=== PATIENT | female | born 1955 | race Caucasian/White ===

== ENCOUNTER 2022-06-07 09:48 | Day surgery (SDC) | payer MEDICARE, SELFPAY ==
[2022-06-06 15:17] VITALS: BMI 29.4
[2022-06-07] VITALS (13 sets, daily range): BP systolic 111–132; BP diastolic 56–79; PULSE 63–86; RESP 10–16; TEMP 36.3–36.7; O2SAT 93–98; BMI 29.4
--- NOTE | 2022-06-07 10:10 | SUR.OPER ---
Supine on padded OR bed, head on pillow, arms secured on padded arm boards at <90 degrees abduction, legs uncrossed, safety belt at thigh, tape over blanket over lower legs.
[2022-06-07] MEDS: LACTATED RINGERS 1,000 ML 42 ML IV (10:48)
--- NOTE | 2022-06-07 11:08 | PM.HP.1 ---
History of Present Illness History of Present Illness Date Patient Seen: 06/07/22 Time Patient Seen: 11:08 Chief complaint: OPEN INCISIONAL HERNIA REPAIR Narrative: 67-year-old woman here for elective repair of a incisional ventral hernia. Please refer to the H& P from April 2022 for further detail. No interval changes in health. Patient History Medical History Diverticulitis Diverticulosis Hearing loss Hernia Hyperlipemia Surgical History H/O umbilical hernia repair History of Family & Social History Family History Mother Hypertension Stroke Breast cancer Skin cancer Grandfather Heart disease Sister Breast cancer Family/Other Breast cancer Social History: household members spouse,children lives independently Yes Tobacco & Substance use: Smoking Status Never smoker alcohol intake current Substance Use Type does not use Meds Home Medications and Allergies Home Medications Medication Instructions Recorded Confirmed Type acetylcysteine (bulk) PO 05/05/22 05/05/22 History [X-[id number]-Cysteine] acetylcysteine 500 mg capsule 500 mg PO DAILY 05/05/22 06/06/22 History cholecalciferol (vitamin D3) PO 05/05/22 05/05/22 History coenzyme Q10 300 mg capsule (Co 300 mg PO DAILY 05/05/22 06/06/22 History Q-10) ezetimibe 10 mg tablet 10 mg PO DAILY 05/05/22 06/06/22 History magnesium oxide 500 mg capsule 500 mg PO DAILY 05/05/22 06/06/22 History simvastatin 20 mg tablet 20 mg PO DAILY 05/05/22 06/06/22 History zinc citrate PO 05/05/22 05/05/22 History Allergies Allergy/AdvReac Type Severity Reaction Status Date / Time bee venom protein (honey bee) Allergy Verified 06/07/22 10:28 Iodinated Contrast Media Allergy Verified 06/07/22 10:28 Exam Vital Signs (past 8 hours): - 06/07/22 10:16 Temperature 98.1 F Pulse Rate 63 Respiratory Rate 16 Blood Pressure 122/68 Pulse Oximetry 98 Oxygen Delivery Method Room Air Oxygen Delivery Method Room Air Narrative Exam Narrative: General adult woman alert oriented no acute distress Abdomen soft reducible supra umbilical ventral hernia right of midline Assessment & Plan Assessment and plan (1) Incisional hernia: Status: Acute Assessment & Plan narrative: 67-year-old woman with a incisional hernia following a prior umbilical hernia repair with mesh. She is here today for elective open repair of the incisional hernia. An overview of the operation was discussed with the patient. Operative risks including bleeding, infection, recurrence, damage to surrounding structures were discussed. Questions have been answered. She gives her verbal and written consent to proceed. Time Spent With Patient Critical Care time: I spent a total of [] minutes of critical care time on this patient's care today; this time is exclusive of procedural time.
[2022-06-07] MEDS: CEFAZOLIN 2 GM/100 ML PREMIX 100 ML IV (11:35)
[2022-06-07] MEDS: ACETAMINOPHEN IV 1,000 MG/100 ML VIAL 400 MG IV (11:40)
[2022-06-07] MEDS: BUPIVACAINE 0.25% (PF) VIAL 30 ML INJ (11:42)
[2022-06-07] MEDS: LACTATED RINGERS 1,000 ML 100 ML IV (12:02)
[2022-06-07] MEDS: fentaNYL 100 MCG/2 ML INJ IV ×2 (13:35→13:47)
--- NOTE | 2022-06-07 13:35 | P.OP_ITS ---
Operative Date/Time/Diagnoses Date of procedure: 06/07/22 Time of procedure: 16:53 Pre-op diagnosis: Ventral hernia Post-op diagnosis: same Procedure & Clinicians Procedure: Open repair of ventral hernia Explantation of mesh Same procedure as scheduled: Yes Indications: 67-year-old woman who underwent a umbilical hernia repair with mesh 2 years ago who has developed a subsequent hernia adjacent to the prior repair Surgeon: Abran Chamberlain Anesthesia Type: General Operative Notes Findings: Intra peritoneal umbilical patch from prior operation not sufficiently covering the defect to the right of the umbilicus. Mesh is contracted does not lay flat against the abdominal wall there is omentum and loop of small-bowel adhesed to it Specimen(s): other (Mesh) Estimated Blood Loss (mL): 20 Procedure in detail: Patient was brought to the operating room placed supine on the table. Bilateral lower extremity compression devices were applied. They received 2 g of Ancef prior to skin incision. Prepped and draped in sterile fashion, ioban was placed. Time-out was performed. A vertical incision to the right of midline w as made at the level of the umbilicus to expose the fascial defect right of the umbilicus. The subcutaneous tissue was divided. The anterior sheath was incised and the rectus muscle was retracted laterally. Through the posterior sheath there was a protrusion of omentum. The posterior sheath was then incised in order to entirely expose the hernia. The hernia sac was dissected off of the fascia and reduced into the abdomen. The defect was just lateral to where the previous mesh been placed. inspection of the abdomen demonstrated an intraperitoneal patch of mesh placed through the umbilicus. The mesh had contracted and distorted into a wad of mesh such that the adhesive surface was exposed and there was omentum as well as a loop of small bowel that were adhesed to the mesh. I could not safely dissect these structures off of the mesh through the right-sided incision so a limited midline incision was made. The omentum and the loop of small bowel for sharply dissected off of the mesh then the mesh was excised from the abdominal wall. The fascial planes at the umbilicus were fused and the recto rectus space could not be entered. Therefore the fascia was then closed in interrupted fashion with Ethibond suture. An onlay piece of macro porous flat mesh 12 x 8 cm was placed over the fascia covering all defects and anchored with interrupted Ethibond suture. Hemostasis was checked. The subcutaneous tissue was then reapproximated using Vicryl skin closed with running 4-0 Monocryl followed by the application of Dermabond. Patient emerged from anesthesia was extubated and transferred to recovery room in stable condition. Complications: none Post-operative Condition: stable Disposition: same day surgery
[2022-06-07] MEDS: OXYCODONE IR 5 MG TABLET PO (14:04)
[2022-06-07] MEDS: MEPERIDINE 50 MG/ML INJ 25 MG IV (14:19)
== END 2022-06-07 15:35 | disposition home or self-care (01) ==
PROVIDERS: PCP Family Medicine; Referring Provider Surgery; Visit Provider Surgery
PROC: (CPT 49560; principal; 2022-06-07 11:15)
DX: K43.9 Ventral hernia without obstruction or gangrene (principal)
CPT/HCPCS: 49560; 49568; 82962; J0131; J0690; J1100; J1885; J2175; J2250; J2405; J3010